=== PATIENT | male | born 1970 ===

== ENCOUNTER 2017-01-15 06:45 | Observation (INO) | payer MEDICAID, OTHER ==
[2017-01-15] MEDS ORDERED: Sodium Chloride 0.9% 1,000 ML IV STA (07:32)
[2017-01-15 07:46] LABS: BASO # 0.01 K/mm3 (0.0-2.0); BASO % 0.1 % (0.0-3.0); EOS % 0.1 % (1.5-5.0); GRAN # 10.49 (1.4-6.5); GRAN % 78.4 % (50.0-68.0); HEMOGLOBIN 15.4 gm/dL (14.0-18.0); LYMPH # 1.3 (1.2-3.4); LYMPH % 9.6 % (22.0-35.0); MEAN CELL VOLUME 84.7 fL (80.0-105.0); MEAN CORPUSCULAR HGB CONC 36.6 g/dl (31.0-37.0); MEAN PLATELET VOLUME 10.5 fl (7.0-11.0); MONO # 1.6 (0.1-0.6); MONO % 11.8 % (1.0-6.0); PLATELET COUNT 222 10^3/uL (120.0-450.0); RBC 4.97 10^6/uL (3.5-6.1); RED CELL DISTRIBUTION WIDTH 13.5 % (11.5-14.5); WHITE BLOOD COUNT 13.4 10^3/ul (4.5-11.0)
--- NOTE | 2017-01-15 07:46 | ED PDOC ---
Arrival/HPI - General Chief Complaint: Abdominal Pain Time Seen by Provider: 01/15/17 07:13 Historian: Patient - History of Present Illness Narrative History of Present Illness (Text): 01/15/17 07:27 Curtis Zavala is a 46 year old male who presents to the emergency department complaining of diffuse abdominal pain with associated vomiting for 2 days. Patient describes his abdominal pain to be stabbing and burning which worsens when he stays still. Patient notes that he cannot tolerate any food consumption and has taken Nancy-seltzer, Pepto-Bismol, and Mylanta to no relief. Patient denies any diarrhea, testicular pain, fevers, or any other complaint at this time. PMD: None Time/Duration: < week Symptom Onset: Gradual Symptom Course: Unchanged Quality: Stabbing, Burning Severity Level: Moderate Activities at Onset: Rest Context: Home Past Medical History - Provider Review Nursing Documentation Reviewed: Yes - Cardiac Hx Cardiac Disorders: No - Pulmonary Hx Respiratory Disorders: No - Neurological Hx Neurological Disorder: No - HEENT Hx HEENT Disorder: No - Renal Hx Renal Disorder: No - Endocrine/Metabolic Hx Endocrine Disorders: No - Hematological/Oncological Hx Blood Disorders: No - Integumentary Hx Dermatological Disorder: No - Musculoskeletal/Rheumatological Hx Musculoskeletal Disorders: No - Gastrointestinal Hx Gastrointestinal Disorders: No - Genitourinary/Gynecological Hx Genitourinary Disorders: No - Psychiatric Hx Psychophysiologic Disorder: No Hx Substance Use: No Family/Social History - Physician Review Nursing Documentation Reviewed: Yes Family/Social History: No Known Family HX Smoking Status: Light Smoker < 10 Cigarettes Daily Hx Alcohol Use: No Hx Substance Use: No Allergies/Home Meds Allergies/Adverse Reactions: Allergies shellfish derived Allergy (Verified 01/15/17 12:00) ANAPHYLAXIS Home Medications: Home Meds Medication Instructions Recorded Confirmed No Known Home Med 01/15/17 01/15/17 Review of Systems - Physician Review All systems were reviewed & negative as marked: Yes - Review of Systems Constitutional: Night Sweats. absent: Fevers Eyes: absent: Vision Changes ENT: absent: Hearing Changes Cardiovascular: absent: Chest Pain Gastrointestinal: Abdominal Pain, Vomiting. absent: Diarrhea Genitourinary Male: absent: Dysuria, Urinary Output Changes Musculoskeletal: absent: Arthralgias Skin: absent: Rash Neurological: absent: Headache, Dizziness Hemo/Lymphatic: absent: Adenopathy Psychiatric: absent: Anxiety, Depression Physical Exam Vital Signs Reviewed: Yes Vital Signs Temp Pulse Resp BP Pulse Ox 01/15/17 12:53 97.9 F 62 18 136/80 01/15/17 09:00 62 18 136/80 97 01/15/17 06:49 97.9 F 75 16 143/88 100 Temperature: Afebrile Blood Pressure: Normal Pulse: Regular Respiratory Rate: Normal Appearance: Positive for: Well-Appearing, Non-Toxic, Comfortable Pain Distress: None Mental Status: Positive for: Alert and Oriented X 3 - Systems Exam Head: Present: Atraumatic, Normocephalic Pupils: Present: PERRL Extroacular Muscles: Present: EOMI Conjunctiva: Present: Normal Mouth: Present: Moist Mucous Membranes Neck: Present: Normal Range of Motion Respiratory/Chest: Present: Clear to Auscultation, Good Air Exchange. No: Respiratory Distress, Accessory Muscle Use Cardiovascular: Present: Regular Rate and Rhythm, Normal S1, S2. No: Murmurs Abdomen: Present: Tenderness (to Upper Quadran and Right Lower Quadrant with guarding), Guarding Back: Present: Normal Inspection Upper Extremity: Present: Normal Inspection. No: Cyanosis, Edema Lower Extremity: Present: Normal Inspection. No: Edema Neurological: Present: GCS=15, CN II-XII Intact, Speech Normal Skin: Present: Warm, Dry, Normal Color. No: Rashes Psychiatric: Present: Alert, Oriented x 3, Normal Insight, Normal Concentration Medical Decision Making - Critical Care Critical Care Minutes: 30 minutes - Lab Interpretations Lab Results: 01/15/17 07:30 01/15/17 07:30 Lab Results 01/15/17 07:30: Sodium 139, Potassium 3.8, Chloride 102, Carbon Dioxide 28, Anion Gap 13, BUN 11, Creatinine 0.8, Est GFR ( Amer) > 60, Est GFR (Non- Af Amer) > 60, Random Glucose 121 H, Calcium 9.3, Total Bilirubin 1.7 H, AST 23 , ALT 30, Alkaline Phosphatase 97, Total Protein 7.5, Albumin 4.1, Globulin 3.4 , Albumin/Globulin Ratio 1.2, Lipase 19 L 01/15/17 07:30: PT 11.0, INR 1.02, APTT 29.0 01/15/17 07:30: WBC 13.4 H, RBC 4.97, Hgb 15.4, Hct 42.1, MCV 84.7, MCH 31.0, MCHC 36.6, RDW 13.5, Plt Count 222, MPV 10.5, Gran % 78.4 H, Lymph % (Auto) 9.6 L, Cook % (Auto) 11.8 H, Eos % (Auto) 0.1 L, Baso % (Auto) 0.1, Gran # 10.49 H, Lymph # 1.3, Cook # 1.6 H, Eos # 0.0, Baso # 0.01 I have reviewed the lab results: Yes Interpretation: Abnormal lab values - RAD Interpretation Curing Room Supervisor: Radiologist - Medication Orders Current Medication Orders: Metronidazole (Flagyl) 500 mg in 100 mls @ 100 mls/hr IVPB Q8 MARKUS PRN Reason: Protocol Sodium Chloride (Sodium Chloride 0.9%) 1,000 mls @ 100 mls/hr IV .Q10H MARKUS Last Admin: 01/15/17 11:03 Dose: 100 mls/hr Cefazolin Sodium (Ancef 1gm In Ns) 1 gm in 100 mls @ 200 mls/hr IVPB Q8H MARKUS Last Admin: 01/15/17 11:03 Dose: 200 mls/hr Morphine Sulfate (Morphine) 4 mg IVP Q4H PRN PRN Reason: Pain, moderate (4-7) Ondansetron HCl (Zofran Inj) 4 mg IVP Q4H PRN PRN Reason: Nausea/Vomiting Discontinued Medications Famotidine (Pepcid) 20 mg IVP STAT STA Stop: 01/15/17 07:33 Last Admin: 01/15/17 07:40 Dose: 20 mg Sodium Chloride (Sodium Chloride 0.9%) 1,000 mls @ 1,000 mls/hr IV .Q1H STA Stop: 01/15/17 08:31 Last Admin: 01/15/17 07:39 Dose: 1,000 mls/hr Iohexol (Omnipaque 350 100 Ml) Confirm Administered Dose 350 mg .ROUTE .STK-MED ONE Stop: 01/15/17 08:09 Ketorolac Tromethamine (Toradol) 30 mg IVP STAT STA Stop: 01/15/17 07:33 Last Admin: 01/15/17 07:40 Dose: 30 mg Ondansetron HCl (Zofran Inj) 4 mg IVP STAT STA Stop: 01/15/17 07:33 Last Admin: 01/15/17 07:40 Dose: 4 mg Pneumococcal Polyvalent Vaccine (Pneumovax 23 Vaccine) 0.5 ml IM .ONCE ONE Stop: 01/15/17 13:10 ED OBSERVATION Date of observation admission: 01/15/17 Time of observation admission: 07:30 - Observation admission statement Patient is being placed in observation because:: Impression: 46 year old male complaining of diffuse abdominal pain with associated vomiting for 2 days. Differential Diagnosis included but are not limited to: R/o gastritis vs. pancreatitis vs. appendicitis - Goals of Observation Goals of observation are:: Plan: -- Abdomen and Pelvis CT w/ contrast -- Urinalysis -- Labs -- Pepcid, Toradol, Zofran, and IV Fluids -- Reassess and disposition - Progress Note Progress Note: 01/15/17 09:37 CT Abdomen and Pelvis with contrast: Dictator : Jason Barreto MD FINDINGS: LOWER THORAX:Unremarkable. LIVER:Unremarkable. No gross lesion or ductal dilatation. GALLBLADDER AND BILE DUCTS: There is mural thickening in the gallbladder and distention of the gallbladder. Inflammatory changes are seen in the adjacent fat planes. There is a small amount of pericholecystic fluid. Findings are consistent with acute cholecystitis PANCREAS:Unremarkable. No gross lesion or ductal dilatation. SPLEEN:Unremarkable. ADRENALS:Unremarkable. No mass. KIDNEYS AND URETERS:Unremarkable. No hydronephrosis. No solid mass. VASCULATURE:Unremarkable. No aortic aneurysm. BOWEL:Unremarkable. No obstruction. No gross mural thickening. APPENDIX:Normal appendix. PERITONEUM:Unremarkable. No free fluid. No free air. LYMPH NODES:Unremarkable. No enlarged lymph nodes. BLADDER:Unremarkable. REPRODUCTIVE:Unremarkable. BONES:No acute fracture. OTHER FINDINGS:None. IMPRESSION: There is mural thickening in the gallbladder and distention of the gallbladder. Inflammatory changes are seen in the adjacent fat planes. There is a small amount of pericholecystic fluid. Findings are consistent with acute cholecystitis 01/15/17 09:[address] Franks, surgical attending, who is aware and recommends getting a gallbladder ultrasound. Reevaluate after for further diagnosis. Case discussed with surgical scrub technician, who is aware and agrees with patient plan. 01/15/17 11:03 US reviewed. Patient will be admitted under Dr. Franks for acute cholecytitis. - Scribe Statement The provider has reviewed the documentation as recorded by the Pallavi Martinez Provider Scribe Attestation: All medical record entries made by the Scribe were at my direction and personally dictated by me. I have reviewed the chart and agree that the record accurately reflects my personal performance of the history, physical exam, medical decision making, and the department course for this patient. I have also personally directed, reviewed, and agree with the discharge instructions and disposition. Disposition/Present on Arrival - Present on Arrival Any Indicators Present on Arrival: No History of DVT/PE: No History of Uncontrolled Diabetes: No Urinary Catheter: No History of Decub. Ulcer: No History Surgical Site Infection Following: None - Disposition Have Diagnosis and Disposition been Completed?: Yes Diagnosis: Acute cholecystitis Disposition Time: 11:08 Patient Plan: Observation Condition: FAIR
[2017-01-15 07:55] LABS: ALB/GLOB RATIO 1.2 (1.1-1.8); ALBUMIN 4.1 g/dL (3.0-4.8); ALT/SGPT 30 U/L (7-56); AST/SGOT 23 U/L (15-59); BLOOD UREA NITROGEN 11 mg/dL (7-21); CALCIUM 9.3 mg/dL (8.4-10.5); GFR AFRICAN-AMERICAN > 60; GFR NON-AFRICAN AMERICAN > 60; LIPASE 19 U/L (23-300)
[2017-01-15 07:56] LABS: INR 1.02 (0.93-1.08)
[2017-01-15] MEDS ORDERED: Iohexol 350 MG/100 ML VIAL ONE (08:08)
[2017-01-15 08:12] VITALS: BMI 26.6
--- NOTE | 2017-01-15 09:21 | CT ---
PROCEDURE: CT Abdomen and Pelvis with contrast HISTORY: abd pain r/o appy COMPARISON: None. TECHNIQUE: Contrast dose: 100 cc of Omni 350 Radiation dose: Total exam DLP = 245 mGy-cm. This CT exam was performed using one or more of the following dose reduction techniques: Automated exposure control, adjustment of the mA and/or kV according to patient size, and/or use of iterative reconstruction technique. FINDINGS: LOWER THORAX: Unremarkable. LIVER: Unremarkable. No gross lesion or ductal dilatation. GALLBLADDER AND BILE DUCTS: There is mural thickening in the gallbladder and distention of the gallbladder. Inflammatory changes are seen in the adjacent fat planes. There is a small amount of pericholecystic fluid. Findings are consistent with acute cholecystitis PANCREAS: Unremarkable. No gross lesion or ductal dilatation. SPLEEN: Unremarkable. ADRENALS: Unremarkable. No mass. KIDNEYS AND URETERS: Unremarkable. No hydronephrosis. No solid mass. VASCULATURE: Unremarkable. No aortic aneurysm. BOWEL: Unremarkable. No obstruction. No gross mural thickening. APPENDIX: Normal appendix. PERITONEUM: Unremarkable. No free fluid. No free air. LYMPH NODES: Unremarkable. No enlarged lymph nodes. BLADDER: Unremarkable. REPRODUCTIVE: Unremarkable. BONES: No acute fracture. OTHER FINDINGS: None. IMPRESSION: There is mural thickening in the gallbladder and distention of the gallbladder. Inflammatory changes are seen in the adjacent fat planes. There is a small amount of pericholecystic fluid. Findings are consistent with acute cholecystitis
[2017-01-15 09:24] LABS: URINE BILIRUBIN NEGATIVE (NEGATIVE); URINE BLOOD SMALL (NEGATIVE); URINE GLUCOSE (UA) NEGATIVE (NEGATIVE); URINE LEUKOCYTE ESTERASE NEGATIVE Leu/uL (NEGATIVE); URINE NITRATE NEGATIVE (NEGATIVE); URINE PROTEIN NEGATIVE mg/dL (<30 mg/dL); URINE UROBILINOGEN 0.2 E.U./dL (<1 E.U./dL)
[2017-01-15 09:34] LABS: URINE APPEARANCE CLEAR (CLEAR); URINE COLOR YELLOW (YELLOW)
[2017-01-15 09:42] LABS: URINE BACTERIA NEG (NEG); URINE EPITHELIAL CELLS 0 - 2 /hpf (0-5); URINE RBC 0 - 2 /hpf (0-2); URINE WBC 0 - 2 /hpf (0-6)
--- NOTE | 2017-01-15 10:33 | RAD ---
HISTORY: pre-op COMPARISON: No prior. FINDINGS: LUNGS: No active pulmonary disease. PLEURA: No significant pleural effusion identified, no pneumothorax apparent. CARDIOVASCULAR: Normal. OSSEOUS STRUCTURES: No significant abnormalities. VISUALIZED UPPER ABDOMEN: Normal. OTHER FINDINGS: None. IMPRESSION: No active disease.
[2017-01-15] MEDS: Sodium Chloride 0.9% 1,000 ML IV SCH ×2 (11:03→21:18)
[2017-01-15] MEDS: ceFAZolin 1 gm in NS 1 GM/100 ML BAG IVPB SCH ×2 (11:03→17:19)
--- NOTE | 2017-01-15 11:13 | US ---
HISTORY: abd pain r/o cholecytitis COMPARISON: None. TECHNIQUE: Sonographic evaluation of the right upper quadrant of the abdomen. FINDINGS: LIVER: Measures 17.3 cm in length. Normal echogenicity of the liver parenchyma. No mass. No intrahepatic bile duct dilatation. GALLBLADDER: Gallstone identified impacted in gallbladder neck. Mural thickening up to 6 mm. Trace pericholecystic fluid. Positive sonographic Manzo sign. Findings concerning for acute cholecystitis. COMMON BILE DUCT: Measures 5 mm. No stones. No dilatation. PANCREAS: Unremarkable as visualized. No mass. No ductal dilatation. RIGHT KIDNEY: Measures 11.8 cm in length. Normal cortical thickness and echogenicity. No calculus or hydronephrosis. Simple cyst, 9 mm, mid right kidney. AORTA: No aneurysmal dilatation. IVC: Unremarkable. OTHER FINDINGS: None . IMPRESSION: Cholelithiasis with mural thickening and trace pericholecystic fluid. Positive sonographic Manzo sign. Concerning for acute cholecystitis. No other significant abnormality.
--- NOTE | 2017-01-15 11:28 | CP.PCM.HP ---
History of Present Illness - History of Present Illness History of Present Illness: Pt is a 46 y/o male with no PMH presenting with 3 days of constant, sharp, 10/ 10 RUQ pain. Patient says he has had this pain for the past 3 months but it has been intermittent until 3 days ago. Patient associates this pain with fatty/ greasy foods and says it got worse with the pizza he ate causing him to become nauseous and vomit. Patient admits to vomitting 3x since this started but has not vomited today. Patient also admits to chills/sweats, lightheadedness, SOB, and CP. When pt asked to point to his chest pain he points to the epigastric area. Pt denies C/D, ROBERTSON, blurry vision, problems with urination, and hematemesis. PMH: Kidney stones Meds: N/A, rare tylenol use Allergies: NKDA PSH: N/A Social Hx: 06/19 PPD smoker, denies abuse Present on Admission - Present on Admission Any Indicators Present on Admission: No History of DVT/PE: No History of Uncontrolled Diabetes: No Review of Systems - Review of Systems All systems: reviewed and no additional remarkable complaints except (See HPI) Past Patient History - Past Social History Smoking Status: Light Smoker < 10 Cigarettes Daily - CARDIAC Hx Cardiac Disorders: No - PULMONARY Hx Respiratory Disorders: No - NEUROLOGICAL Hx Neurological Disorder: No - HEENT Hx HEENT Problems: No - RENAL Hx Chronic Kidney Disease: No - ENDOCRINE/METABOLIC Hx Endocrine Disorders: No - HEMATOLOGICAL/ONCOLOGICAL Hx Blood Disorders: No - INTEGUMENTARY Hx Dermatological Problems: No - MUSCULOSKELETAL/RHEUMATOLOGICAL Hx Musculoskeletal Disorders: No - GASTROINTESTINAL Hx Gastrointestinal Disorders: No - GENITOURINARY/GYNECOLOGICAL Hx Genitourinary Disorders: No - PSYCHIATRIC Hx Psychophysiologic Disorder: No Hx Substance Use: No - SURGICAL HISTORY Hx Surgeries: No Meds Allergies/Adverse Reactions: Allergies Allergy/AdvReac Type Severity Reaction Status Date / Time No Known Allergies Allergy Verified 01/15/17 06:48 Physical Exam - Constitutional Appears: Non-toxic, No Acute Distress - Head Exam Head Exam: ATRAUMATIC - Eye Exam Eye Exam: EOMI, Normal appearance - ENT Exam ENT Exam: Mucous Membranes Moist - Neck Exam Neck exam: Positive for: Full Rom - Respiratory Exam Respiratory Exam: Clear to Auscultation Bilateral, NORMAL BREATHING PATTERN. absent: Rales, Rhonchi, Wheezes, Respiratory Distress, Stridor - Cardiovascular Exam Cardiovascular Exam: REGULAR RHYTHM, RRR, +S1, +S2. absent: Diastolic murmur, Systolic Murmur - GI/Abdominal Exam GI & Abdominal Exam: Guarding (Voluntary ), Normal Bowel Sounds, Tenderness. absent: Distended, Rebound Additional comments: Tender to palpation in epigastrum and RUQ. Unable to test for alicea sign 2/2 voluntary guarding. - Extremities Exam Extremities exam: Positive for: normal inspection, pedal pulses present. Negative for: pedal edema - Neurological Exam Neurological exam: Alert, Oriented x3 - Psychiatric Exam Psychiatric exam: Normal Affect, Normal Mood - Skin Skin Exam: Dry, Intact, Normal Color, Warm Results - Vital Signs Recent Vital Signs: Last Vital Signs Temp 97.9 F 01/15/17 06:49 Pulse 62 01/15/17 09:00 Resp 18 01/15/17 09:00 BP 136/80 01/15/17 09:00 Pulse Ox 97 01/15/17 09:00 - Labs Result Diagrams: 01/15/17 07:30 01/15/17 07:30 Labs: Laboratory Results - last 24 hr 01/15/17 09:10 Urine Color Yellow Urine Appearance Clear Urine pH 8.0 Ur Specific Shickley 1.010 Urine Protein Negative Urine Glucose (UA) Negative Urine Ketones Negative Urine Blood Small H Urine Nitrate Negative Urine Bilirubin Negative Urine Urobilinogen 0.2 Ur Leukocyte Esterase Negative Urine RBC 0 - 2 Urine WBC 0 - 2 Ur Epithelial Cells 0 - 2 Urine Bacteria Neg - Imaging and Cardiology CT scan - abdomen Status: Image reviewed by me, Report reviewed by me US - abdomen Status: Image reviewed by me Assessment & Plan - Assessment and Plan (Free Text) Assessment: 46 y/o male with acute cholecystitis vs biliary colic Plan: - IV fluids - Flagyl and Ancef - Zofran PRN for nausea - Morphine PRN for pain - NPO - EKG - I&O - Vitals Q4h - SCDs for DVT prophylaxis Pt discussed with Dr. Golden Roldan DO PGY1
[2017-01-15] MEDS ORDERED: Pneumococcal 23-Valent Vaccine IM ONE (13:09)
[2017-01-15] MEDS: metroNIDAZOLE IV 500 mg/100 ml 500 MG/100 ML BAG IVPB SCH ×2 (14:20→21:17)
[2017-01-15] MEDS: Morphine 4 mg/ml ISec IVP PRN ×2 (15:03→19:58)
[2017-01-16] MEDS: ceFAZolin 1 gm in NS 1 GM/100 ML BAG IVPB SCH ×3 (02:24→17:36)
[2017-01-16] MEDS: Morphine 4 mg/ml ISec IVP PRN ×4 (02:30→22:22)
[2017-01-16] MEDS: metroNIDAZOLE IV 500 mg/100 ml 500 MG/100 ML BAG IVPB SCH ×3 (06:12→21:03)
[2017-01-16] MEDS: Sodium Chloride 0.9% 1,000 ML IV SCH (06:13)
[2017-01-16 07:04] LABS: BASO # 0.01 K/mm3 (0.0-2.0); BASO % 0.1 % (0.0-3.0); EOS % 0.2 % (1.5-5.0); GRAN % 70.6 % (50.0-68.0); HEMOGLOBIN 13.9 gm/dL (14.0-18.0); LYMPH # 1.4 (1.2-3.4); LYMPH % 13.5 % (22.0-35.0); MEAN CORPUSCULAR HEMOGLOBIN 30.5 pg (25.0-35.0); MEAN CORPUSCULAR HGB CONC 35.5 g/dl (31.0-37.0); MEAN PLATELET VOLUME 10.6 fl (7.0-11.0); MONO # 1.6 (0.1-0.6); MONO % 15.6 % (1.0-6.0); PLATELET COUNT 195 10^3/uL (120.0-450.0); RBC 4.56 10^6/uL (3.5-6.1); RED CELL DISTRIBUTION WIDTH 13.5 % (11.5-14.5); WHITE BLOOD COUNT 10.2 10^3/ul (4.5-11.0)
[2017-01-16 07:28] LABS: ALB/GLOB RATIO 1.2 (1.1-1.8); ALBUMIN 3.6 g/dL (3.0-4.8); ALT/SGPT 27 U/L (7-56); AST/SGOT 23 U/L (15-59); BLOOD UREA NITROGEN 8 mg/dL (7-21); CALCIUM 8.4 mg/dL (8.4-10.5); GFR AFRICAN-AMERICAN > 60; GFR NON-AFRICAN AMERICAN > 60
--- NOTE | 2017-01-16 08:51 | CARD ---
APPROVED REPORT EKG Measurement Heart [id number] NH 150P8 [id number] <Conclusion> Sinus bradycardia Minimal voltage criteria for LVH, may be normal variant Small q in 3
[2017-01-16] MEDS ORDERED: Propofol 10 mg/ml Inj (20 ML) ONE (10:54)
[2017-01-16] MEDS ORDERED: Rocuronium 10 mg/ml (5 ml) ONE (10:55)
[2017-01-16] MEDS ORDERED: Midazolam 2 MG/2 ML VIAL ONE (10:55)
[2017-01-16] MEDS ORDERED: Morphine 2 mg/ml ISec IVP PRN (11:52)
[2017-01-16] MEDS ORDERED: Lactated Ringer's 1,000 ML IV SCH (11:52)
--- NOTE | 2017-01-16 12:46 | PCM.SURG1 ---
Surgeon's Initial Post Op Note - Surgeon's Notes Surgeon: Dr Franks Stone Dresser: Dr Campo PGY3, Dr Arce PGY2, Jamar PGY1 Pre-Operative Diagnosis: acute cholecystitis Operative Findings: as above Post-Operative Diagnosis: as above Operation Performed: laparoscopic cholecystectomy Specimen/Specimens Removed: gallbladder Estimated Blood Loss: EBL {In ML}: 25 Blood Products Given: N/A Drains Used: No Drains Post-Op Condition: Good Date of Surgery/Procedure: 01/16/17 Time of Surgery/Procedure: 12:46
[2017-01-16] MEDS ORDERED: Oxycodone/Acetaminophen 5/325 mg Tab PO PRN (12:49)
[2017-01-16] MEDS ORDERED: HYDROmorphone 0.5 mg/0.5 ml ISec IVP PRN (12:51)
[2017-01-16] MEDS ORDERED: HYDROmorphone 0.5 mg/0.5 ml ISec ONE (13:02)
[2017-01-16] MEDS ORDERED: HYDROmorphone 0.5 mg/0.5 ml ISec IVP ONE (13:05)
[2017-01-16 16:51] VITALS: RESP 20
--- NOTE | 2017-01-16 23:52 | OP ---
PROCEDURE DATE: 01/16/2017 PREOPERATIVE DIAGNOSIS: Acute cholecystitis. POSTOPERATIVE DIAGNOSIS: Acute cholecystis. PROCEDURE: Laparoscopic cholecystectomy. SURGEON: Dr. Franks. ASSISTANTS: Dr. Campo and Dr. Arce. TYPE OF ANESTHESIA: General. ANESTHESIA ADMINISTERED BY: Dr. Cristobal. DESCRIPTION OF OPERATION: With the patient in the supine position under adequate general anesthesia, the abdomen was prepped and draped in the usual sterile manner. A Veress needle puncture was performed at the umbilicus with inflation to 15 cm water pressure of CO2 and a 10 mL laparoscopic trocar was inserted via an infraumbilical incision. Under direct vision, additional trocars were inserted in the epigastrium and right costal margin. The gallbladder was visualized, It was tensely distended and appeared acutely inflamed. The gallbladder was aspirated of approximately 60 mL of dark green bile. The gallbladder fundus was then grasped and elevated, adhesions to the omentum were taken down to expose the infundibulum, which was grasped and retracted laterally. The cystic duct was identified and dissected. It was cleared down towards the common bile duct and viewed anteriorly and posteriorly. The cystic duct was then triply clipped and divided, the cystic artery was similarly identified and anterior and posterior branches were dissected and then each triply clipped and divided. The gallbladder was dissected free of liver bed using electric cautery. The liver bed was edematous consistent with acute cholecystitis. The liver bed was inspected for hemostasis and the dissection was completed. The gallbladder was placed in a specimen retrieval bag and removed via the umbilical port site. It was noted to contain at least one moderately sized stone. The right upper quadrant was irrigated and suctioned. The pneumoperitoneum was released and the trocars were removed. The umbilical port site was closed in a [id number] fascial suture 0 Vicryl. All incisions were closed with 4-0 Monocryl subcuticular sutures and Steri-Strips. Dry sterile dressings were applied. The patient tolerated the procedure well and transferred to recovery room in stable condition. ESTIMATED BLOOD LOSS FOR THE PROCEDURE: 25 mL. Luisito Franks MD
[2017-01-17] MEDS: ceFAZolin 1 gm in NS 1 GM/100 ML BAG IVPB SCH ×2 (01:31→09:19)
[2017-01-17] MEDS: Morphine 4 mg/ml ISec IVP PRN ×2 (02:53→06:37)
[2017-01-17] MEDS: metroNIDAZOLE IV 500 mg/100 ml 500 MG/100 ML BAG IVPB SCH (05:19)
[2017-01-17 06:53] LABS: BASO # 0.01 K/mm3 (0.0-2.0); BASO % 0.1 % (0.0-3.0); EOS % 0.5 % (1.5-5.0); GRAN # 5.79 (1.4-6.5); GRAN % 71.8 % (50.0-68.0); HEMOGLOBIN 11.8 gm/dL (14.0-18.0); LYMPH # 1.2 (1.2-3.4); LYMPH % 15.1 % (22.0-35.0); MEAN CELL VOLUME 86.4 fL (80.0-105.0); MEAN CORPUSCULAR HEMOGLOBIN 29.6 pg (25.0-35.0); MEAN CORPUSCULAR HGB CONC 34.3 g/dl (31.0-37.0); MEAN PLATELET VOLUME 10.1 fl (7.0-11.0); MONO % 12.5 % (1.0-6.0); PLATELET COUNT 181 10^3/uL (120.0-450.0); RBC 3.98 10^6/uL (3.5-6.1); RED CELL DISTRIBUTION WIDTH 13.3 % (11.5-14.5); WHITE BLOOD COUNT 8.1 10^3/ul (4.5-11.0)
[2017-01-17 07:19] LABS: ALT/SGPT 53 U/L (7-56); AST/SGOT 47 U/L (15-59); BLOOD UREA NITROGEN 10 mg/dL (7-21); CALCIUM 8.1 mg/dL (8.4-10.5); GFR AFRICAN-AMERICAN > 60; GFR NON-AFRICAN AMERICAN > 60
[2017-01-17 08:14] VITALS: BP 128/80; PULSE 71; TEMP 98.9; O2SAT 97
--- NOTE | 2017-01-17 09:33 | CP.PCM.DIS ---
Provider - Provider Date of Admission: 01/15/17 07:33 Attending physician: Luisito Franks MD Time Spent in preparation of Discharge (in minutes): 45 Diagnosis - Discharge Diagnosis (1) Acute cholecystitis Status: Acute Hospital Course - Lab Results Lab Results: Micro Results 01/15/17 13:43 Blood Blood Culture - Preliminary NO GROWTH AFTER 24 HOURS 01/15/17 13:43 Blood Blood Culture - Preliminary NO GROWTH AFTER 24 HOURS Most Recent Lab Values WBC 8.1 10^3/ul (4.5-11.0) D 01/17/17 06:00 RBC 3.98 10^6/uL (3.5-6.1) 01/17/17 06:00 Hgb 11.8 gm/dL (14.0-18.0) L 01/17/17 06:00 Hct 34.4 % (42.0-52.0) L 01/17/17 06:00 MCV 86.4 fL (80.0-105.0) 01/17/17 06:00 MCH 29.6 pg (25.0-35.0) 01/17/17 06:00 MCHC 34.3 g/dl (31.0-37.0) 01/17/17 06:00 RDW 13.3 % (11.5-14.5) 01/17/17 06:00 Plt Count 181 10^3/uL (120.0-450.0) 01/17/17 06:00 MPV 10.1 fl (7.0-11.0) 01/17/17 06:00 Gran % 71.8 % (50.0-68.0) H 01/17/17 06:00 Lymph % (Auto) 15.1 % (22.0-35.0) L 01/17/17 06:00 [place] % (Auto) 12.5 % (1.0-6.0) H 01/17/17 06:00 Eos % (Auto) 0.5 % (1.5-5.0) L 01/17/17 06:00 Baso % (Auto) 0.1 % (0.0-3.0) 01/17/17 06:00 Gran # 5.79 (1.4-6.5) 01/17/17 06:00 Lymph # 1.2 (1.2-3.4) 01/17/17 06:00 [place] # 1.0 (0.1-0.6) H 01/17/17 06:00 Eos # 0.0 (0.0-0.7) 01/17/17 06:00 Baso # 0.01 K/mm3 (0.0-2.0) 01/17/17 06:00 PT 11.0 Seconds (9.9-11.8) 01/15/17 07:30 INR 1.02 (0.93-1.08) 01/15/17 07:30 APTT 29.0 Seconds (23.7-30.8) 01/15/17 07:30 Sodium 140 mmol/L (132-148) 01/17/17 06:00 Potassium 3.6 mmol/L (3.6-5.0) 01/17/17 06:00 Chloride 104 mmol/L (98-107) 01/17/17 06:00 Carbon Dioxide 28 mmol/L (21-33) 01/17/17 06:00 Anion Gap 12 (10-20) 01/17/17 06:00 BUN 10 mg/dL (7-21) 01/17/17 06:00 Creatinine 0.9 mg/dL (0.5-1.4) 01/17/17 06:00 Est GFR ( Amer) > 60 01/17/17 06:00 Est GFR (Non-Af Amer) > 60 01/17/17 06:00 Random Glucose 94 mg/dL (70-110) 01/17/17 06:00 Calcium 8.1 mg/dL (8.4-10.5) L 01/17/17 06:00 Total Bilirubin 0.9 mg/dL (0.2-1.3) 01/17/17 06:00 AST 47 U/L (15-59) 01/17/17 06:00 ALT 53 U/L (7-56) 01/17/17 06:00 Alkaline Phosphatase 73 U/L (38-133) 01/17/17 06:00 Total Protein 6.0 g/dL (5.8-8.3) 01/17/17 06:00 Albumin 3.0 g/dL (3.0-4.8) 01/17/17 06:00 Globulin 3.0 gm/dL 01/17/17 06:00 Albumin/Globulin Ratio 1.0 (1.1-1.8) L 01/17/17 06:00 Lipase 19 U/L (23-300) L 01/15/17 07:30 Urine Color Yellow (YELLOW) 01/15/17 09:10 Urine Appearance Clear (CLEAR) 01/15/17 09:10 Urine pH 8.0 (4.7-8.0) 01/15/17 09:10 Ur Specific [place] 1.010 (1.005-1.035) 01/15/17 09:10 Urine Protein Negative mg/dL (<30 mg/dL) 01/15/17 09:10 Urine Glucose (UA) Negative mg/dL (NEGATIVE) 01/15/17 09:10 Urine Ketones Negative mg/dL (NEGATIVE) 01/15/17 09:10 Urine Blood Small (NEGATIVE) H 01/15/17 09:10 Urine Nitrate Negative (NEGATIVE) 01/15/17 09:10 Urine Bilirubin Negative (NEGATIVE) 01/15/17 09:10 Urine Urobilinogen 0.2 E.U./dL (<1 E.U./dL) 01/15/17 09:10 Ur Leukocyte Esterase Negative [place]/uL (NEGATIVE) 01/15/17 09:10 Urine RBC 0 - 2 /hpf (0-2) 01/15/17 09:10 Urine WBC 0 - 2 /hpf (0-6) 01/15/17 09:10 Ur Epithelial Cells 0 - 2 /hpf (0-5) 01/15/17 09:10 Urine Bacteria Neg (NEG) 01/15/17 09:10 - Hospital Course Hospital Course: 46M with no relevant past medical history presented to the Emergency [facility] on 01/15/17 with RUQ pain fo 3 days duration. Ultrasound of the abdomen confirmed acute cholecystitis. Pt was taken for surgery. Laparoscopic cholecystectomy was performed successfully with no complications. Pt tolerated the procedure well. Post operatively, no complications, pt is tolerating diet, ambulating, with pain under control. Follow up one week as outpatient to Dr. Franks. - Date & Time of H&P Date of H&P: 01/20/17 Discharge Exam - Head Exam Head Exam: ATRAUMATIC - Eye Exam Eye Exam: EOMI - ENT Exam ENT Exam: Mucous Membranes Moist - Respiratory Exam Respiratory Exam: NORMAL BREATHING PATTERN. absent: Accessory Muscle Use, Wheezes, Respiratory Distress - Cardiovascular Exam Cardiovascular Exam: +S1, +S2 - GI/Abdominal Exam GI & Abdominal Exam: Normal Bowel Sounds, Soft. absent: Distended, Firm, Guarding, Organomegaly, Pulsatile Mass, Rebound, Rigid Additional comments: appropriately tender around incision site - Neurological Exam Neurological exam: Alert, Normal Gait, Oriented x3 - Psychiatric Exam Psychiatric exam: Normal Affect, Normal Mood - Skin Skin Exam: Normal Color, Warm Discharge Plan - Follow Up Plan Condition: FAIR Disposition: HOME/ ROUTINE Instructions: Cholecystitis (DC), Cholecystitis (GEN) Additional Instructions: Patient can shower tomorrow. Can remove bandage on top. Strips covering the incision leave on, and will fall off on its own. Do not soak in bath tube, or go swimming in the ocean. No heavy lifting for 4 weeks. Follow up with Dr. Franks in one week.
== END 2017-01-17 13:58 | disposition home or self-care (01) ==
LOC: ED 06:45 → EROBSV 07:33 → ERH 11:08 → 3RNO 12:01
PROVIDERS: ADMIT Specialist; ATTEND Specialist
DX: K80.00 Calculus of gallbladder with acute cholecystitis without obstruction (principal)
CPT/HCPCS: 36415; 47562; 71010; 74177; 76705; 80053; 81001; 83690; 85025; 85610; 85730; 87040; 88304; 93005; 96361; 96365; 96366; 96367; 96375; 96376; 99285; G0378; J0690; J1170; J1885; J2001; J2250; J2270; J2405; J2704; J3010; J7040; J7120; Q9967